=== PATIENT | male | born 1950 | race Two or more races ===

== ENCOUNTER 2016-12-06 00:05 | Inpatient (IN) | payer MEDICARE ==
[~2016-12-06] VITALS: Ht 167.6 cm; Wt 95.1 kg
--- NOTE | ~2016-12-06 | ESTC ---
Cardiac Perfusion Imaging Demographics Patient Name KRISTIN DIAZ Gender Male Patient Number [id number] Race Other Visit Number [id number] Ethnicity Corporate ID Room Number G6310 Accession Number [id number] Height 66 inches Date of 1950 Weight 210 pounds Interpreting CNC Date of study 12/12/2016 Physician Rajan Vieyra MD Supervising /ARMIDA Reyes NM Technologist Harriet Montgomery APRN Ordering Physician Bernardo Cox Stress metallurgical lab technician Stress ECG Reading Howard Reyes Nurse Iva Sharp RN Physician MACHINE PRINTER HOSE Procedure Procedure Type: Nuclear Stress Test:Pharmacological, Lexiscan, Cardiolite Stress Test Procedure Start time: 12/12/2016 09:30 Indications: Arrhythmia and PVCs. Risk Factors The patient risk factors include:hypercholesterolemia, hypertension, insulin treated diabetes mellitus and dyslipidemia. Conclusions Summary Cardiolite SPECT images demonstrate a mild to moderate reversible defect in the inferolateral region with associated hypokinesis. Findings consistent with probable ischemia. Normal TID ratio Gated images demonstrate inducible hypokinesis of moderate severity in the above mentioned area of the reversible defect. LVEF is 46% Stress Protocols Resting ECG Atrial fibrillation with rapid response. Frequent PVC's Resting HR:124 bpm Resting BP:160/59 mmHg Pre-stress physical exam: Alert. Lungs CTA. CV IRR Stress Protocol:Pharmacologic Peak HR:134 bpm HR response: Appropriate Peak BP:142/63 mmHg BP response: Appropriate Predicted HR: 153 bpm HR/BP product:47307 % of predicted HR: 88 Reason for termination:Infusion complete ECG Findings No ECG changes suggestive of ischemia. Symptoms Shortness of breath. Cough and nausea. Resolved after 2 minutes. Stress Interpretation Stress supervision and interpretation provided by Rita Lawrence APRN . Appropriate hemodynamic response to Lexiscan. No significant ST-T wave changes with Lexiscan. ECG portion is negative for ischemia by diagnostic criteria. Imaging Results Summed scores - Summed stress score: 6 - Summed rest score: 4 - Summed difference score: 2 Stress ejection Ejection fraction:45 % EDV :95 ml ESV :52 ml Stroke volume :43 ml LV mass :152 gr Imaging Protocols Rest Stress Isotope:Tc99m Sestamibi IV Isotope: Tc99m Sestamibi IV Isotope dose:14.4 mCi Isotope dose:45 mCi Date:12/12/2016 08:15 Date:12/12/2016 09:40 Technique: SPECT Technique: Gated Supine SPECT Supine IV remains in place after procedure. Scan Time:45-60 minutes post Scan Time:45-60 minutes post injection injection Procedure Medications - Regadenoson (Lexiscan) 0.4 mg IV over 10-15 sec. I.V. 0.4 mg. Medical History Admission Data Admission date: 12/06/2016 Admission Time: 03:15 Hospital Status: Inpatient. Signatures dtt: Jarrell Tolentino (cardio) dtd: 12/12/16 0930 Physician Self Edit
--- NOTE | ~2016-12-06 | CON ---
PATIENT'S NAME: [facility] AGE: 66 Y [address] ROOM: G6310 [place], [place] [address] LOCATION: GPCU ADMIT DATE: 12/06/2016 Consultation DISCHARGE DATE: FAMILY PHYSICIAN: Dagoberto Rea MD ATTENDING PHYSICIAN: DIEGO HERNANDEZ V DATE OF CONSULTATION: 12/09/2016 REFERRING PHYSICIAN: Raul CACERES (Jake) PATIENT OF: Dr. Silva. Dear Dr. Silva: Thank you for asking me to see Mr. Foster, who is a 66-year-old male patient, who was hospitalized on the with abdominal pain, and he was treated as acute abdomen. He has an NG tube in place, and he was on Cardizem intravenously to control his rate when he was found to have 3.5-second pause, and I was asked to see him in consultation. The patient has a history of atrial fibrillation for the past 12 years. Initially, his AFib was detected when his blood pressure ran very high and at that time, he was not particularly symptomatic. He was at some point started on Xarelto, which resulted in him having rectal bleeding. He denies having any heart failure. There is no history of [place] or angina or nitroglycerin use. There is no history of rheumatic fever or heart murmur. The patient has history of hypertension and diabetes. He denies abusing tobacco. Denies elevated cholesterol or family history of premature coronary artery disease. 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 He denies having any chest pain. He does not have any structured exercise program. He has been in functional class II-III with no paroxysmal nocturnal dyspnea or orthopnea. He has history of multiple myeloma and has been on chemotherapy which causes his sleep to be poor. He also has hiccups secondary to some other medications and that makes him difficult to sleep as well. He denies lightheadedness, dizziness, syncope, presyncope, palpitations, or ankle swelling. Sometime around February of last year, he developed diverticulitis, and this was treated conservatively. For the past 6 weeks or so, he has been having intermittent lumbar area pain with some radiation which has gotten a lot worse recently last Tuesday. Since his admission, he has been on nasogastric suction, and he is feeling better now. The patient had a stress test in 2014 with Lexiscan which was negative for [facility] 66 Y [address] ROOM: [place] [address] LOCATION: GPCU ADMIT DATE: 12/06/2016 Consultation DISCHARGE DATE: FAMILY PHYSICIAN: Dagoberto Rea MD ATTENDING PHYSICIAN: DIEGO HERNANEDZ. His echo in 2014 or so again revealed moderate LVH. MEDICATIONS: 1. Carvedilol 25 mg b.i.d. 2. Lovastatin 20 mg at bedtime. 3. Aspirin 325 mg 2 every 4 hours p.r.n. 4. Acetaminophen 500 mg 2 every 4 hours p.r.n. 5. Docusate sodium. 6. Tradjenta 5 mg 3 times a week. ALLERGIES: NO KNOWN DRUG ALLERGIES. PAST MEDICAL HISTORY: 1. Multiple myeloma. 2. Chronic kidney disease, and the patient blames it on diabetic medications in 2012. 3. Hernia surgery. 4. Cataract surgery. SOCIAL HISTORY: The patient is . He denies abusing alcohol. His appetite and weight have been stable. Sleep is poor. FAMILY HISTORY: No premature coronary artery disease. REVIEW OF SYSTEMS: Twelve-point review of systems reveals dry eyes. PHYSICAL EXAMINATION: VITAL SIGNS: On examination, his blood pressure is 140s/80s and irregular. Respiration is 20. Afebrile. His heart rate is in the 70s and irregular. HEENT: Normal. He has a nasogastric tube. NECK: Supple with no JVD, thyromegaly, lymphadenopathy, or carotid bruit. HEART: PMI is not well located. First and second heart sounds are irregular. There are no added sounds. There are no murmurs. CHEST: Clear. ABDOMEN: Obese and somewhat mildly tender to touch. EXTREMITIES: Reveal no edema. CENTRAL NERVOUS SYSTEM: Intact. ASSESSMENT: A 66-year-old male patient, who is admitted with acute abdomen, possibly secondary to a perforated viscus for which he is on conservative treatment as PATIENT'S NAME: [facility] AGE: 66 Y [address] ROOM: [place] [id number] LOCATION: GPCU ADMIT DATE: 12/06/2016 Consultation DISCHARGE DATE: FAMILY PHYSICIAN: Dagoberto Rea MD ATTENDING PHYSICIAN: DIEGO HERNANDEZ V of now. He also has history of multiple myeloma, chronic kidney disease, diabetes, and hypertension. His CHADS2-VASc score is 3. His HAS-BLED score is also somewhat high given the history of bleeding with Xarelto. RECOMMENDATION: 1. Check his thyroid function tests. 2. Avoid AV node blocking agents. 3. Repeat echocardiogram. 4. The patient was hypoxic when he presented and even though his chest x-ray is suggestive of early congestive heart failure, there is no clear explanation for his hypoxia. We will get a V/Q scan to see if that shows any abnormalities. At some point, he should be followed up with outpatient monitoring to be able to tell with certainty whether he is going to need a permanent pacemaker done in the recent present or not. I again appreciate this opportunity to participate in the care of Mr. Foster. MD DIDIER OWUSU/alvaro /[id number] d: 12/09/16 2305 t: 12/10/16 1838, CONSULTATION REPORT
--- NOTE | ~2016-12-06 | ECHO ---
Transthoracic Echocardiography Report (TTE) Demographics Patient Name JOE FOSTER Date of Study 12/10/2016 Patient Number [id number] Visit Number [id number] Date of 1950 Room Number G6310 Gender Male Number Age 66 year(s) Referring Bernardo Cox Air Conditioning Equipment Mechanic Fabian Ratliff RDCS, Physician MD NATHANAEL Hood MD Physician Interpreting Bernardo Cox Data Modeling Architect Physician Supervising Ordering Bernardo Cox MD/MLP Physician Nurse Stress Quality Improvement Engineer Conclusions Contractility Score Summary At rest the following contractility abnormalities were noted: Hypokinesis of the Mid maria eugenia-lateral, the Mid anterior, the Basal anterior and the Basal maria eugenia-lateral segments. Contractility of all other segments appeared normal. Summary The estimated left ventricular ejection fraction is 55-60% with normal internal dimension and WM.Mild concentric left ventricular hypertrophy. The left atrium is severely dilated by LA volume index measurement. The right atrium is moderately dilated. Mild-moderate mitral regurgitation by color Doppler. The aortic valve is moderately sclerotic. Mild tricuspid regurgitation by color Doppler. There is moderate pulmonary hypertension. The pulmonary pressure (RVSP) is 52.45 mmHg. Procedure Type of Study TTE procedure:2D Echocardiogram. Procedure Date Date: 12/10/2016 Start: 01:49 PM Study Location: Inpatient Portable Technical Quality: Adequate visualization Indications:Atrial fibrillation. Appropriate Use Criteria: 9 Patient Status: Routine Rhythm: Irregular HR: 44 bpm M-Mode/2D Measurements LV Diastolic Dimension: 5.18 cm LV Systolic Dimension: 3.26 cm LV Septum Diastolic: 1.09 cm LV PW Diastolic: 1.01 cm AO Root Dimension: 3.1 cm Cardiac Output: 3.8 l/min AV Cusp Separation: 1.4 cm RV Diastolic Dimension: 3.64 cm LA volume: 96 ml LVOT: 2 cm RV Base: 3.23 cm LVOT VTI: 27.5 cm RV Mid: 1.94 cm LV Stroke volume: 86.35 ml Doppler Measurements AV Peak Velocity: 1.93 m/s MV Peak E-Wave: 1.15 m/s AV Peak Gradient: 14.9 mmHg AV Mean Gradient: 9 mmHg MV P1/2t: 45 msec LVOT Peak Velocity: 1.42 m/s TR Velocity:3.06 m/s PV Peak Velocity: 1.34 m/s TR Gradient:37.45 mmHg PV Peak Gradient: 7.18 mmHg Estimated RAP:15 mmHg Estimated PASP: 52.45 mmHg Estimated RVSP: 52 mmHg E' Septal Velocity: 0.08 m/s E' Lateral Velocity: 0.1 m/s Findings Left Ventricle Mild concentric left ventricular hypertrophy with normal internal dimension,EF and WM. Right Ventricle Normal right ventricle structure and function. Left Atrium The left atrium is severely dilated by LA volume index measurement. Right Atrium The right atrium is moderately dilated. Mitral Valve Mild-moderate mitral regurgitation by color Doppler. Aortic Valve The aortic valve is moderately sclerotic. Tricuspid Valve Mild tricuspid regurgitation by color Doppler. There is moderate pulmonary hypertension. The pulmonary pressure (RVSP) is 52.45 mmHg. Pulmonic Valve Normal pulmonic valve structure and function. Pericardial Effusion No evidence of pericardial effusion. Miscellaneous Visualized portions of the aortic root and ascending aorta appear normal in size. Suboptimal subcostal window to evaluate the IVC and interatrial septum. Pleural Effusion No evidence of pleural effusion. Contractility Score LV regional wall motion:(0-Non visualized 1-Normal 2-Hypokinesis 3-Akinesis 4-Dyskinesis 5-Aneurysm) Signature dtt: Brooke Chang dtd: 12/10/16 7219 Physician Self Edit
--- NOTE | ~2016-12-06 | HP ---
PATIENT'S NAME: JOE FOSTER [facility] AGE: 66 Y [address] ROOM: [place] [address] LOCATION: GPCU ADMIT DATE: 12/06/2016 History & Physical DISCHARGE DATE: FAMILY PHYSICIAN: Dagoberto Rea MD ATTENDING PHYSICIAN: DIEGO HERNANDEZ V DATE OF SERVICE: 12/06/2016 CHIEF COMPLAINT: Abdominal pain. HISTORY OF PRESENT ILLNESS: Starting on last Tuesday, about 6 days ago, he started experiencing bilateral flank pain that progressed to generalized abdominal pain and throughout the course of the week also progressed to right lower quadrant and suprapubic abdominal pain that became significantly worse over the last day. He has had some associated nausea, but no associated vomiting until they had attempted NG tube placement here in the ER. He also admits to having his urine as more dark, orange than the normal. He also admits that in the last day, he became slightly more short of breath than normal, but denies any associated chest pain. He had a normal bowel movement yesterday and denies any melena or hematochezia. He had a similar episode of pain back in February, which ended up being perforated diverticulitis and was treated conservatively. His significant medical comorbidities include multiple myeloma for which he takes chronic steroids; previously was on chemotherapy, but was discontinued due to toxicities, specifically neurotoxicities. His story is further complicated by poorly controlled diabetes as well as chronic kidney disease, stage 4. He previously also had a GI bleed back in 2014 and that was his last colonoscopy at that time. He denies any fevers or chills at home. Denies any recent travel or change in dietary habits or sick contacts. The pain is worse with palpation. He denies any alleviating factors. The pain is moderate to severe in intensity and crampy in quality. Although he mainly complains of pain in the right lower quadrant to the palpation, he is most tender in the suprapubic and left lower quadrant areas. ALLERGIES: NO KNOWN DRUG ALLERGIES. MEDICATIONS: Please see hospitalist list for complete list of medications, but in brief, he is on steroids. FAMILY HISTORY: Noncontributory. PATIENT'S NAME: JOE FOSTER [facility] AGE: 66 Y [address] ROOM: [place] [address] [facility] AD[facility] DATE: 12/06/2016 History & Physical DISCHARGE DATE: FAMILY PHYSICIAN: Dagoberto Rea MD ATTENDING PHYSICIAN: DIEGO HERNANDEZ V SOCIAL HISTORY: He is originally from [facility] [place], but has lived in [place] since the mid 80s. He is and his accompanies him here today. He does have 1 son. 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 Denies any tobacco or alcohol use or abuse. REVIEW OF SYSTEMS: A full 10-point review of systems was discussed the patient and was negative except for as discussed above. Specifically, he denies any chest pain, although he does admit to some mild increased shortness of breath. He does admit to a darker than normal urine, but denies any other genitourinary complaints. PAST MEDICAL HISTORY: Multiple myeloma, on steroids, with previous chemotherapy; type 2 diabetes; chronic kidney disease, stage 4; hypertension; obesity; history of GI bleed; history of AFib with RVR; and history of questionable diagnosis of CLL. PAST SURGICAL HISTORY: Bilateral inguinal hernia repairs, shoulder surgery, and cataract surgery. PHYSICAL EXAMINATION: VITAL SIGNS: The patient is currently afebrile. His vital signs are stable. Earlier today in the ER, he had a heart rate with AFib with RVR in the 130s, but currently he is in the low 100s. He does appear to be mildly diaphoretic. He has nasal cannula, at least one prong in place. HEENT: His head is normocephalic. His sclerae are anicteric. NECK: Supple. Trachea is midline. He does appear to have some mild tachypnea. Otherwise, no use of accessory respiratory muscles. HEART: His rate is controlled. His rhythm is irregular. ABDOMEN: Soft throughout. It is moderately distended. It is tender to palpation, specifically in the suprapubic area and the left lower quadrant. He has no peritoneal signs. No guarding or rebound. EXTREMITIES: Bilateral lower extremities are warm. Brisk capillary refill without evidence of significant edema. No obvious calf tenderness or swelling. SKIN: No obvious skin lesions or rashes. LABORATORY EVALUATION: His UA has 100 protein, 50 glucose, ketones are negative, rare wbc's. INR 1.08, PTT 27. Procalcitonin was 0.06. Sodium 140, potassium 4.1, chloride 102, CO2 of 26, BUN is 48, creatinine 3.3, albumin 3.3, total bilirubin 0.4, alkaline phosphatase 108, AST 16, ALT 19. His white count is 11.6, hemoglobin 11.9, platelets are 198. His venous blood gas has pH 7.33, his pCO2 is 54. Again, this is venous and pO2 is 26, bicarb is 28.5. Lactate was 5.9, but PATIENT'S NAME: JOE FOSTER [facility] AGE: 66 Y [address] ROOM: G63[address] [place], [place] [address] LOCATION: GPCU ADMIT DATE: 12/06/2016 History & Physical DISCHARGE DATE: FAMILY PHYSICIAN: Dagoberto Rea MD ATTENDING PHYSICIAN: DIEGO HERNANDEZ V again he has chronic renal insufficiency. RADIOLOGY REVIEW: CT scan of the abdomen and pelvis shows a mild amount of pneumoperitoneum, most of it is surrounding the sigmoid colon and a couple of loops of small bowel around the sigmoid colon, very similar but more mild in the appearance back in February, perhaps an evolving small fluid collection around that same area with the pneumoperitoneum next to the sigmoid in the upper pelvis. The official read mentions the possibility of small bowel source versus diverticular source. I believe this is probably more likely to be a diverticular phlegmon and perforation, but no obvious abscess seen, no significant free fluid seen, no other evidence of acute changes. ASSESSMENT AND PLAN: Joe Foster is a very pleasant 66-year-old gentleman with about 6-day history of abdominal pain related to perforation, most likely secondary to diverticulitis. This appears to have been self-contained and sealed off as it has been going on for 6 days with only minimal amount of pneumoperitoneum and phlegmonous changes contained around the sigmoid colon, similar to previous. We discussed the option such as surgical versus medical management, and I recommend proceeding with attempted conservative management with antibiotics and bowel rest and supportive care at this point, but he understands the risks associated with this approach such as loss of containment of the perforation with progressive sepsis and need for emergent surgery and acute decompensation. He understands that if he were to require an emergent surgery, he would more than likely require a colostomy that given all of his comorbidities may end up being a permanent one. He understands the significant risk of surgery including infection, bleeding, damage to surrounding structures, need for further procedures and surgeries amongst others. Of course, his healing either with a surgical approach or with a conservative approach is dampened by his multiple myeloma, chronic kidney disease, and diabetes, and we will have to continue to keep a very close eye on him to make sure that he has indeed contained this perforation on his own, especially given the chronic steroid use and number of comorbidities. He and his had all their questions answered to their satisfaction. He will be admitted to the hospitalist, given IV antibiotics and bowel rest. We will continue to follow along from a surgical point of view as well. MD KWAME BRIONES (JAKE)/alvaro PATIENT'S NAME: JOE FOSTER [facility] AGE: 66 Y [address] ROOM: [place] [address] [facility] AD[facility] DATE: 12/06/2016 History & Physical DISCHARGE DATE: FAMILY PHYSICIAN: Dagoberto Rea MD ATTENDING PHYSICIAN: DIEGO HERNANDEZ V /[id number] D: T: [id number] HISTORY & PHYSICAL
--- NOTE | ~2016-12-06 | DS ---
PATIENT'S NAME: JOE FOSTER [facility] AGE: 66 Y [address] ROOM: [id number] [place], [place] [address] LOCATION: GPCU ADMIT DATE: 12/06/2016 Discharge Summary DISCHARGE DATE: 12/17/2016 FAMILY PHYSICIAN: Dagoberto Rea MD ATTENDING PHYSICIAN: Korey Solis V PRIMARY DIAGNOSES: 1. Sepsis. 2. Perforated diverticulitis, recurrent x2. 3. Atrial pause x1 3.48 seconds. 4. Acute hypoxic respiratory failure. 5. Coronary artery disease with right coronary artery stent. 6. Paroxysmal atrial fibrillation with rapid ventricular response. 7. Acute diarrhea. 8. Thrombocytopenia. 9. Hypernatremia. 10. Hypophosphatemia. 11. Chronic conditions includes diabetes type 2, chronic kidney disease, stage 3, multiple myeloma. PRINCIPAL PROCEDURE DONE FOR THE PATIENT: Includes a left heart catheterization with PCI stent in the RCA x2. LABORATORY DATA: Labs during the hospital stay: Lactic acid on admission was 5.9, repeat was 5.0. VBG was pH 7.48, pCO2 38, pO2 49. WBC on admission was 11.6, prior to discharge was 9.9, H and H on admission was 11.9/36.4, prior to discharge was 8.9/27.1, platelet on admission was 198, prior to discharge was 145. Creatinine on admission was 3.3, prior to discharge was 3.6, sodium highest level obtained during the hospital stay was 148, prior to discharge was 139, bicarb was 26 on admission, prior to discharge was 19. Hemoglobin A1c is 9.5, total cholesterol 57, HDL 12, LDL 20, and triglyceride 128. UA: Leukocytes negative, nitrite negative, wbc rare, procalcitonin 0.06. TSH was 1.930. MICROBIOLOGY: Urine culture was Micrococcus luteus. Blood culture was Bacteroides fragilis. Stool for C. diff was negative. RADIOLOGY: CT abdomen and pelvis reported as bowel wall thickening and adjacent inflammation involving the distal small bowel with a small amount of air within the small bowel mesentery concerning for small bowel perforation, relatively stable extensive bony lytic lesions, consistent with the patient's known multiple myeloma, small left renal cyst, diverticulosis with no evidence of diverticulitis. Serial KUB, V/Q scan, low probability exam for pulmonary embolic disease. Suspected underlying COPD. Nuclear stress test severely positive. Echocardiogram the estimated left ventricular ejection fraction is PATIENT'S NAME: JOE FOSTER [facility] AGE: 66 Y [address] ROOM: [id number] [place], [place] [address] LOCATION: GPCU ADMIT DATE: 12/06/2016 Discharge Summary DISCHARGE DATE: 12/17/2016 FAMILY PHYSICIAN: Dagoberto Rea MD ATTENDING PHYSICIAN: Korey Solis V 55% to 60% with normal internal dimension and wall motion. Mild concentric left ventricular hypertrophy. The left atrium is severely dilated by LV volume index measurement. The right atrium is moderately dilated. PA pressure 52. Cardiolite SPECT imaging demonstrates [id number] reversible defect in the inferolateral region with associated hypokinesis. Finding consistent with probable ischemia. HOSPITAL COURSE: For history of present illness, please take a look at the H and P, which was done by Dr. Solis. The patient was admitted to Progressive Care Unit, had a General Surgery consult, given his admitting diagnosis of perforated small bowel, secondary to his diverticulosis. The patient was managed conservatively by General Surgery. An attempt was made to pass an NG- tube on the first day of hospital stay, but failed. However, by the next day of his hospital stay, the patient continued to have nausea and vomiting by the nighttime; so, by the next day of the hospital stay, his NG tube was successfully passed. The patient was continued on n.p.o. Some of his medication, especially his Cardizem, his rate-controlled meds for his AFib was switched to IV, he was started on Cardizem drip. He was monitored serially with a KUB by the General Surgery team and the patient was able to pass gas and progressively started passing stool. By December 09, the patient had an atrial pause of about 3.48 seconds. Based on this, Cardiology was consulted; and following this, he had an echocardiogram done, stress test done, which was positive; and subsequently, went in for a left heart cath, which resulted in him having 2 stents in his RCA. The procedure was well-tolerated by the patient without any intraoperative or postop complication. By December 11, the patient started passing stool, his NG tube was discontinued, and he was started on oral sips, which he tolerated well; and from this point onwards, his diet was slowly advanced to full regular diet without symptoms of nausea or vomiting. Following the improvement in his small-bowel perforation from December 13, the patient started to have diarrhea, stool was tested, and this was negative for C. diff. The diarrhea improved however 2 days prior to discharge the acute diarrhea restarted again; however, his stool was unable to be tested for C. diff as it was still within the 7 day period of the initial testing for C. diff; however, prior to discharge, this acute diarrhea resolved. The patient was still being followed up by Cardiology, his Coreg was discontinued, and was put on metoprolol and also on Brilinta. Throughout his hospital stay, the patient was feet physically conditioned, participated well with physical therapy as well as occupational therapy; and on the day of discharge, his vital signs were stable and he was discharged home. During his stay, the patient was started on broad-spectrum antibiotics of cefepime and Flagyl and he did have his blood cultures positive for Bacteroides. His Flagyl was continued on discharge for him to complete a total course of 14 days of antibiotics. MEDICATIONS ON DISCHARGE: Includes: PATIENT'S NAME: JOE FOSTER [facility] AGE: 66 Y [address] ROOM: [place] [address] LOCATION: GPCU ADMIT DATE: 12/06/2016 Discharge Summary DISCHARGE DATE: 12/17/2016 FAMILY PHYSICIAN: Dagoberto Rea MD ATTENDING PHYSICIAN: Korey Solis V 1. Aspirin 81 mg p.o. daily. 2. Lipitor 40 mg p.o. daily. 3. Levemir 10 units subcu q.a.m. FlexPen, new medication. 4. Lopressor 62.5 mg p.o. twice daily. 5. Flagyl 500 mg p.o. 3 times daily for an extra 3 days to make a total of 14 days of antibiotics. 6. Protonix 40 mg p.o. daily, new medication. 7. Florastor 250 mg p.o. twice daily, new medication. 8. Sodium bicarb 1300 mg p.o. twice daily for 5 days, new medication. 9. Brilinta 90 mg p.o. twice daily. 10. Tylenol Extra Strength 1 g p.o. q.4 h. p.r.n. 11. Colace 100 mg p.o. daily p.r.n. 12. Tradjenta 5 mg p.o. 3 times per week. Discharge time spent on this patient is approximately 35 minutes, which included discussing his discharge followup and plans with the patient. MD DIPAK DEE/alvaro /[id number] d: 12/18/16 0124 t: 12/18/16 1438, DISCHARGE SUMMARY
--- NOTE | ~2016-12-06 | ER ---
PATIENT'S NAME: JOE FOSTER [facility] AGE: 66 Y [address] ROOM: [place] [address] LOCATION: GPCU ADMIT DATE: 12/06/2016 ER/Outpatient Report DISCHARGE DATE: FAMILY PHYSICIAN: Dagoberto Rea MD ATTENDING PHYSICIAN: DIEGO HERNANDEZ V Time of Arrival: 0005 hours. CHIEF COMPLAINT: This is a 66-year-old male with multiple medical problems. He is in with a complaint of fever and abdominal pain. HISTORY OF PRESENT ILLNESS: The patient reports that he had gradual onset of bilateral flank pain last night, developed more diffuse and more severe abdominal pain throughout the day today. Today, he began having some bloating and worsening abdominal pain this afternoon associated with nausea and vomiting. PAST MEDICAL HISTORY: Significant for diverticulitis. He was hospitalized in February of last year for a ruptured diverticulum with diverticular abscess. He also has a history of multiple myeloma, hypertension, non-insulin dependent diabetes, and chronic renal insufficiency. CURRENT MEDICATIONS: See list. REVIEW OF SYSTEMS: He has developed chills today; prior to the onset of this illness, he has had no fever or chills. His appetite been normal. There was no prodrome to this illness. All other systems are negative. SOCIAL HISTORY: He is currently a nonsmoker. No alcohol. He is . PHYSICAL EXAMINATION: GENERAL: Pale, ill-appearing male, in obvious distress. He is febrile and tachycardic. ABDOMEN: Significantly distended. He was nauseated, had dry heaves and belching. HEENT: Head, ears, eyes, nose, and throat were normal. NECK: Supple. He had moderate jugular venous distention. HEART: Irregular rhythm. He is tachycardiac. LUNGS: He had rales audible in the lower two-thirds bilaterally. ABDOMEN: Distended, diffusely tender. Diminished bowel sounds. PATIENT'S NAME: JOE FOSTER [facility] AGE: 66 Y [address] ROOM: [address] [address] LOCATION: GPCU ADMIT DATE: 12/06/2016 ER/Outpatient Report DISCHARGE DATE: FAMILY PHYSICIAN: Dagoberto Rea MD ATTENDING PHYSICIAN: DIEGO HERNANDEZ V EXTREMITIES: Normal. NEUROLOGIC: He is awake, alert, and he had no focal motor or sensory deficits. LABORATORY DATA AND X-RAYS: CBC revealed an elevated white blood cell count of 14,000. Urinalysis revealed proteinuria and no evidence of acute infection. Procalcitonin was negative. Glucose was elevated at 236, creatinine was elevated at 3.3. EKG revealed atrial fibrillation with rapid ventricular response, the rate varied between [address] of the abdomen and pelvis revealed a small amount of free air, probable microperforation from diverticulitis, diverticular abscess. EMERGENCY DEPARTMENT COURSE: The patient was extremely hypertensive and appeared to be fluid overloaded on arrival. He was tachycardiac due to his atrial fibrillation. He was given Cardizem bolus of 10 mg, Cardizem drip was initiated at 10 mg/hour. He responded well to that. He was given IV Zosyn and Flagyl. A surgical consult arrived and evaluated the patient and the patient was admitted to Dr. Hernandez. Time spent caring for the patient 70 minutes. ASSESSMENT: 1. Peritonitis due to ruptured diverticulitis. 2. Atrial fibrillation with rapid ventricular response. 3. Probable sepsis. PLAN: He is admitted to the ICU. He was quite hypertensive and appeared to be fluid overloaded on arrival, so in spite of the sepsis, we did not do aggressive fluid resuscitation. JANELLE LOO MD JDB/modl /[id number] d: 12/07/16 0046 t: 12/07/16 0445, OUTPATIENT REPORT
--- NOTE | ~2016-12-06 | HP ---
PATIENT'S NAME: JOE FOSTER [facility] AGE: 66 Y [address] ROOM: [place] [address] LOCATION: [facility] ADMIT DATE: 12/06/2016 History & Physical DISCHARGE DATE: FAMILY PHYSICIAN: Dagoberto Rea MD ATTENDING PHYSICIAN: Alessio Beaver DATE OF SERVICE: CHIEF COMPLAINT: Abdominal pain and nausea. HISTORY OF PRESENT ILLNESS: The patient is a 66-year-old male with multiple medical problems, most significant of which is multiple myeloma as well as atrial fibrillation, currently not on anticoagulation. The patient presented to the hospital with approximately one week of worsening abdominal pain. His symptoms progressively got worse and today he has had some fevers as well as nausea and vomiting. The workup in the ER demonstrated a lactate of 5 with elevated white count and CAT scan which showed free air likely due to perforated diverticula. Of note, the patient had a very similar presentation approximately 9 months ago where he presented with similar symptoms and was found to have perforation with free air which was treated nonsurgically. In the ER, the patient was also noted to be in atrial fibrillation with rapid ventricular response and has been started on Cardizem. At this point, the patient still complains of some abdominal pain as well as some mild nausea. Three attempts [address] an NG tube have been unsuccessful. REVIEW OF SYSTEMS: Positive for fever, chills, and generalized malaise. PAST MEDICAL HISTORY: As extracted from our records and provided by the patient and his are, 1. Multiple myeloma, currently on oral therapy, but they are not able to tell me exactly what medication the patient takes, though apparently Decadron is one of them. 2. Atrial fibrillation, currently not on anticoagulation. 3. History of lower GI bleed. 4. History of diverticulitis with perforation. 5. Jez-ddvshwt-zktsfvplj diabetes. 6. Chronic kidney disease stage 4. PATIENT'S NAME: JOE FOSTER [facility] AGE: 66 Y [address] ROOM: [place] [address] LOCATION: [facility] ADMIT DATE: 12/06/2016 History & Physical DISCHARGE DATE: FAMILY PHYSICIAN: Dagoberto Rea MD ATTENDING PHYSICIAN: Alessio Beaver 7. Essential hypertension. SOCIAL HISTORY: The patient denies any ongoing or history of toxic habits. CURRENT MEDICATIONS: Being obtained but the patient is not able to tell me what they are. PHYSICAL EXAMINATION: VITAL SIGNS: At this point, blood pressure 130/62, heart rate is in low 100s, saturating 96% on 2 L nasal cannula, temperature is 100.3, respirations are in high 20s. GENERAL: Appears as a toxic appearing middle-aged male in some distress due to abdominal pain. SKIN: Diaphoretic throughout. EYE: Exam shows pupils are equal and reactive to light. LYMPHATIC: Exam shows no cervical lymphadenopathy. ENDOCRINE: Exam shows no thyromegaly. LUNGS: Demonstrate diminished inspiratory effort with no wheezing or rales. HEART: Exam shows irregular rate and rhythm with irregular tachycardia. No appreciable murmurs, gallops, or rubs. There is no lower extremity edema or jugular venous distention that can be appreciated. GI: Exam reveals diffusely tender abdomen with normoactive bowel sounds. No guarding or rebound appreciated. : Exam reveals no costovertebral angle tenderness. VASCULAR: Exam reveals 2+ pedal pulses. MUSCULOSKELETAL: Exam shows no muscle or joint abnormalities. DIAGNOSTIC STUDIES: Studies performed so far show an atrial fibrillation. EKG with atrial fibrillation and rapid ventricular response with right bundle-branch block. CAT scan has been interpreted as evidence of bowel perforation, exact etiology is uncertain, but there is inflammation and ill-defined fluid within the free air surrounding bowel loops in the upper pelvis. This may be small-bowel perforation. Sigmoid colonic diverticulitis with perforation and small volume abscess is less likely. LABORATORY DATA: Laboratory results are significant for; VBG showing pH of 7.33, pCO2 of 54, bicarb of 28, saturating 42%. Lactate is 5.9. His creatinine is 3.3 which is up from a presumed baseline in high 2s. White count is 11.6, hemoglobin is 11.9, platelets of 198. INR is 1.08. Urinalysis is unremarkable. ASSESSMENT AND PLAN: This is a 66-year-old male who will be admitted with, PATIENT'S NAME: JOE FOSTER [facility] AGE: 66 Y [address] ROOM: [place], [place] [address] LOCATION: [facility] ADMIT DATE: 12/06/2016 History & Physical DISCHARGE DATE: FAMILY PHYSICIAN: Dagoberto Rea MD ATTENDING PHYSICIAN: Alessio Beaver 1. Severe sepsis due to likely diverticulitis/perforation. We will utilize the severe sepsis order set. We will aggressively hydrate the patient. We will monitor his perfusion and support it as necessary. We will repeat his lactate in 5 hours after admission to monitor for evolution of his septic process. 2. Diverticular perforation. The patient is currently being evaluated by Surgery, though we do not expect any surgical intervention given his multiple medical problems. 3. Atrial fibrillation with rapid ventricular response. We will continue the patient on Cardizem drip, and we will need to get a list of his home medications and optimize as needed. 4. Acute hypoxic respiratory failure based on oxygen demand. We will provide him with incentive spirometry and supplemental oxygen. 5. Insulin-dependent diabetes. We will put the patient on sliding scale insulin as every 6 hours, as he will be kept n.p.o. 6. Acute kidney injury on chronic kidney disease stage 4. We will hydrate the patient and monitor his renal function. 7. Multiple myeloma. This does not appear to be active, but we will consider a Hematology-Oncology consultation. 8. Hypercalcemia. This is likely related to his multiple myeloma and dehydration; we will monitor calcium level and treat it if it does not respond to fluids. 9. Additional management will depend on clinical course. Time dedicated for this patient's encounter is 35 minutes. MD FER PRADO/alvaro /[id number] D: 436 T: 020 HISTORY & PHYSICAL
--- NOTE | ~2016-12-06 | CATH ---
Cardiac Diagnostic + PCI Report Demographics Patient Name KRISTIN DIAZ Gender Male Date of 1950 Age 66 year(s) Patient Number [id number] Date of Study 12/13/2016 Visit Number [id number] Room Number G6310 [place] [id number] Ht 167.64 cm Wt 95.26 kg Referring Rea Dagoberto Hood MD Primary Physician Physician Will Lockett MD Performing Rajan Vieyra MD Secondary Physician Physician Diagnostic Rajan Vieyra MD Assisting Physician Physician Interventional Rajan Vieyra MD Physician [place] Operator Physician Findings and Conclusions Diagnostic Findings and Conclusion One vessel CAD Diagnostic Recommendations PCI RCA Interventional Findings and Conclusion 0.014 Prowater 3.5x12 Emerge 4.5x20 VeriFlex to 5.02 with 0% residual Interventional Recommendations DAPT for one month Routine post perclose Procedure Description The patient was brought to the diagnostic cardiac catheterization-EP laboratory in the fasting, non-sedated state. Informed consent was obtained in the written and verbal form after the risks and benefits were explained. The patient had no further questions and agreed to proceed. The planned puncture-incision site(s) were shaved and prepped with ChloraPrep and draped in the usual sterile manner. Conscious sedation, supplemental oxygen, and pain control medications were delivered by a registered nurse under physician guidance. Surface ECG rhythm, blood pressure measurement, and pulse oximetry were monitored throughout the procedure. Arterial access. The access site was infiltrated with lidocaine. The vessel was entered with the Seldinger technique. A sheath was advanced into the vessel and used for catheter placement. Selective left coronary angiography. A catheter was advanced into the left coronary vessel ostium under Fluoroscopic guidance. Contrast was injected by hand. Images were obtained in multiple projections. Selective right coronary angiography. A catheter was advanced into the right coronary vessel ostium under fluoroscopic guidance. Contrast was injected by hand. Images were obtained in multiple projections. Angioplasty and Stent Placement: A guiding catheter was used to intubate the vessel. A 0.14 wire was then used to cross the lesion. A balloon catheter was placed across the lesion and inflated. The balloon catheter was then removed. A Bare Metal Stent was placed and inflated. Post placement angiograms were performed. Left heart catheterization. A catheter was advanced across the aortic valve to the left ventricle under fluoroscopic guidance. Resting hemodynamics were obtained. Arterial artery hemostasis was achieved. The patient was transferred to a regular nursing floor via cart accompanied by a nurse. The patient left the laboratory in stable condition. Diagnostic Cath Status: Urgent Interventional Cath Status: Urgent Procedure Procedure Type Diagnostic procedure:Angiography:, Coronary Angios /[facility] PCI procedure:Bare Metal Coronary Stent:, RCA, PTCA:, RCA Indications: Shortness of breath, Rapid heart beat, Abnormal stress perfusion study and Unstable angina. The procedure was explained in detail to the patient. Risks, complications and alternative treatments were reviewed. Written consent was obtained. Medications Reviewed with Patient prior to Procedure. Angiographic Findings Dominance: Mixed Cardiac Arteries and Lesion Findings LMCA: Normal (0% Stenosis).Very Large caliber vessel. LAD: Normal (0% Stenosis).The LAD is a large caliber vessel. The 1st Diag is a medium caliber vessel. The 1st Diag appears normal. LCx: Normal (0% Stenosis).LCx Large caliber vessel. The 1st ob Marta is a small caliber vessel. The 1st ob Marta appears normal. The 2nd ob Marta is a large caliber vessel. The 2nd ob Marta appears normal. RCA: Abnormal.The RCA is a large caliber vessel. The R PDA is a large caliber vessel. The R PDA appears normal. The R PL is a large caliber vessel. The R PL appears normal. Lesion on Mid RCA: 85% stenosis reduced to 0%. Pre procedure LUIS III flow was noted. Post Procedure LUIS III flow was present. The guidewire cross was successful.The lesion was diagnosed as a low risk lesion.The lesion was eccentric.Culprit lesion. Devices used - Prowater Wire .014 x 180. Number of passes: 1. - Emerge Balloon 3.5 x 12. 1 inflation(s) to a max pressure of: 12 anthony. - BARE METAL: VERIFLEX STENT 4.5X20MM ([id number]). Diameter: 4.5 mm. Length: 20 mm. 2 inflation(s) to a max pressure of: 16 anthony. Coronary Tree Procedure Data Procedure Date Date: 12/13/2016Start: 09:09 AMEnd: 09:56 AM Entry Locations - Retrograde Percutaneous access was performed through the Right Femoral artery (Primary location). A 6 Fr sheath was inserted. Hemostasis was successfully obtained using Perclose ProGlide (Abrams). Closure Comments: [place] . Procedure Medications Order and Administration + + + + + !Time !Medication !Dosage !Route ! + + + + + !12/13/2016 09:06 !Versed !1 mg !I.V. ! !AM ! ! ! ! + + + + + !12/13/2016 09:06 !Fentanyl !25 mcg !I.V. ! !AM ! ! ! ! + + + + + !12/13/2016 09:09 !Versed !1 mg !I.V. ! !AM ! ! ! ! + + + + + !12/13/2016 09:18 !Angiomax (Bivalirudin) !75 mg !I.V. bolus ! !AM !(ACC_5) ! ! ! + + + + + !12/13/2016 09:21 !Angiomax (Bivalirudin) !1.75 mg/kg/hr!I.V. drip ! !AM !(ACC_5) ! ! ! + + + + + !12/13/2016 09:35 !Brilinta (Ticagrelor) !180 mg !P.O. ! !AM !(ACC_20) ! ! ! + + + + + !12/13/2016 09:48 !Angiomax (Bivalirudin) ! !I.V. drip ! !AM !(ACC_5) ! ! ! + + + + + Devices Used - A6 Fr. BS JL 4 Diag. Catheterwas used for:Left coronary angiography. - A6 Fr. BS JR 4 Diag. Catheterwas used for:Right coronary angiography. - A6 Fr. BS Angled Pigtail Diag. Catheterwas used for:LV Pressures. - A6 Fr. JR4 Guide Catheterwas used for:RCA Intervention. Contrast Material - Isovue 77625 ml Fluoroscopy Time: Diagnostic: 8:00 minutes. Total: 8:00 minutes. Fluoroscopy Dose: Diagnostic: 1328 mGy. Total: 1328 mGy. Estimated Blood Loss: 4 ml. Additional [facility] PCI Information PCI Indication:PCI for high risk Non-STEMI or unstable angina. Medical History Performed Procedures and Imaging Results - Stress testing with SPECT MPIwas performed on 12/12/2016. Results were: Positive. Risk/Extent of ischemia was: Intermediate risk. Allergies - No known allergies. Risk Factors The patient risk factors include:hypercholesterolemia, hypertension, insulin-treated diabetes mellitus, last creatinine: 3.6 mg/dl, creatinine clearance: 26.83 ml/min and dyslipidemia. Admission Data Admission Date: 12/06/2016 Admission Time: 03:15 AM Admit Source: Emergency department Insurance Payors: Medicare. Admission Medications + +------+------+ + + + + !Medication !Dosage!Times !Last !Last !Administered !Comments ! ! ! !Per !Delivery !Delivery ! ! ! ! ! !Day !Date !Time ! ! ! + +------+------+ + + + + !Beta ! ! ! ! !Yes ! ! !Milvia ! ! ! ! ! ! ! !(any) ! ! ! ! ! ! ! + +------+------+ + + + + !Statin ! ! ! ! !Yes ! ! !(any) ! ! ! ! ! ! ! + +------+------+ + + + + Clinical Evaluation Leading to Procedure - The patient's CAD presentation was assessed as: Unstable angina. - The patient's anginal syndrome during the past two weeks was assessed as: Class III according to the [place] Cardiovascular Society Classification System (CCS). Anti-anginal medications were prescribed during the past two weeks. The medication is: Beta Blockers. Hemodynamics Condition: Rest O2 Consumption: Estimated: 210.04Heart Rate: 35 bpm Pressures (mmHg) +-----+ + !Site !Pressure ! +-----+ + !AO !123/84 (102) ! +-----+ + !LV !135/4 ,9 ! +-----+ + !LV !125/7 ,11 ! +-----+ + !AO !119/79 (98) ! +-----+ + !LV !126/6 ,11 ! +-----+ + Valve Gradients and Areas + +---------+---------+---------+ +---------+ + !Valve !Peak !Mean !Area !Index !Flow !Source ! + +---------+---------+---------+ +---------+ + !Aortic !3 !0 ! ! ! ! ! + +---------+---------+---------+ +---------+ + !Aortic !3 !0 ! ! ! ! ! + +---------+---------+---------+ +---------+ + Shunts Oxygen Values O2 Capacity 161.84 O2 Consumption 210.04 Discharge Data Discharge Date: 12/17/2016 Hospital Status: Inpatient Signatures dtt: Jarrell Tolentino (cardio) dtd: 12/13/16 0909 Physician Self Edit
[~2016-12-06 00:05] MED LIST: AMOXICILLIN500 M1 PO; APRESOLINE50 MG PO; ASPIRIN325 MG PO; AUGMENTIN500 MG PO; COLACE100 MG PO; COREG25 MG PO; DECADRON4 MG PO; FEOSOL325 MG PO; FLAGYL500 M1 PO; FLORASTOR250 MG PO; JANUMET 50-1,01 EACH PO; JANUVIA25 MG PO; LOVASTATIN20 MG PO; NORVASC5 MG PO; PROTONIX40 MG PO; VASOTEC20 MG PO
[2016-12-06 00:28] LABS: BASOPHIL % 0.2 %; BICARBONATE 28.5 mmol/L (18.0-23.0); EOSINOPHIL % 0.3 %; HEMATOCRIT 36.4 % (37.0-53.0); HEMOGLOBIN 11.9 g/dL (11.0-16.0); IMMATURE GRANULOCYTE # 0.1 K/uL (0.0-0.3); IMMATURE GRANULOCYTE % 0.6 %; LYMPHOCYTE # 1.9 K/uL (0.8-4.0); LYMPHOCYTE % 16.5 %; MCH 32.2 pg (27.0-34.0); MCHC 32.7 gm/dL (32.0-36.5); MCV 98.4 fl (83.0-98.0); MONOCYTE # 0.6 K/uL (0.0-1.0); MONOCYTE % 5.2 %; MPV 9.9 fl (9.4-12.4); NEUTROPHIL # (ANC) 8.9 K/uL (1.4-9.0); NEUTROPHIL % 77.2 %; NRBC % 0.3 /100WBC (0-0.00); PCO2 54 mmHg (35-45); PLATELET COUNT 198 K/uL (150-450); RDW-CV 13.8 % (11.9-14.6); WBC 11.6 K/uL (4.0-11.0)
[2016-12-06 00:29] LABS: PO2 26 mmHg (80-90)
[2016-12-06 00:30] LABS: LACTATE 5.9 mEq/L (0.50-1.60)
[2016-12-06 00:42] LABS: ALBUMIN 3.3 gm/dL (3.5-5.0); ANION GAP 16.1 (10.0-19.0); CALCIUM 11.3 mg/dL (8.5-10.5); CREATININE 3.3 mg/dL (0.6-1.3); POTASSIUM 4.1 mMol/L (3.7-5.1); TOTAL BILIRUBIN 0.4 mg/dL (0.0-1.5); TOTAL PROTEIN 8.6 g/dL (6.0-8.4)
[2016-12-06 01:50] LABS: BILIRUBIN URINE NEGATIVE (NEGATIVE); BLOOD URINE 25 /UL (NEGATIVE); COLOR URINE YELLOW (YELLOW); GLUCOSE URINE 50 mg/dL (NEGATIVE); KETONE URINE NEGATIVE (NEGATIVE); LEUKOCYTES URINE NEGATIVE /UL (NEGATIVE); NITRITE URINE NEGATIVE (NEGATIVE); PROTEIN URINE 100 mg/dL (NEGATIVE); SPEC GRAVITY URINE 1.015 (1.003-1.035); TURBIDITY URINE CLEAR (CLEAR); UROBILINOGEN URINE NORMAL (NORMAL)
[2016-12-06 01:55] LABS: INR - (THERAPEUTIC) 1.08 (0.92-1.07); PROTIME 11.3 SECONDS (9.8-11.4)
[2016-12-06 01:57] LABS: BACTERIA URINE NEGATIVE (NEGATIVE); EPITHELIAL URINE 0-2 #/HPF (NEGATIVE); RBC URINE 0-2 #/HPF (NEGATIVE); WBC URINE RARE #/HPF (NEGATIVE)
[2016-12-06] MEDS ORDERED: TYLENOL EXTRA500 MG PO (04:18)
[2016-12-06] MEDS ORDERED: COLACE100 MG PO (04:18)
[2016-12-06] MEDS ORDERED: TRADJENTA5 MG PO (04:21)
[2016-12-06 05:36] LABS: PCO2 38 mmHg (35-45)
[2016-12-06 05:37] LABS: PO2 49 mmHg (80-90)
[2016-12-06 08:29] LABS: HEMATOCRIT 33.3 % (37.0-53.0); HEMOGLOBIN 11.2 g/dL (11.0-16.0); MCH 33.1 pg (27.0-34.0); MCHC 33.6 gm/dL (32.0-36.5); MCV 98.5 fl (83.0-98.0); MPV 10.1 fl (9.4-12.4); PLATELET COUNT 162 K/uL (150-450); RBC 3.38 M/uL (3.50-5.50); RDW-CV 14.1 % (11.9-14.6); WBC 11.1 K/uL (4.0-11.0)
[2016-12-06 08:55] LABS: ABSOLUTE NEUTROPHIL CT (ANC) 8.9 K/uL (1.4-9.0); ALBUMIN 2.7 gm/dL (3.5-5.0); ANION GAP 15.9 (10.0-19.0); BANDED NEUTROPHIL # 0.9 K/uL (0.0-0.1); BANDED NEUTROPHILS % 8 %; CALCIUM 10.4 mg/dL (8.5-10.5); CREATININE 3.8 mg/dL (0.6-1.3); LYMPHOCYTE # 1.3 K/uL (0.8-4.0); LYMPHOCYTE % 12 %; MAGNESIUM 2.2 mg/dL (1.8-2.6); MONOCYTE # 0.8 K/uL (0.0-1.0); POTASSIUM 3.9 mMol/L (3.7-5.1); SEGMENTED NEUTROPHIL % 72 %; TOTAL PROTEIN 7.5 g/dL (6.0-8.4)
[2016-12-06 08:59] LABS: TOTAL BILIRUBIN 0.8 mg/dL (0.0-1.5)
[2016-12-07 04:34] LABS: HEMATOCRIT 30.3 % (37.0-53.0); HEMOGLOBIN 9.7 g/dL (11.0-16.0); MCH 32.1 pg (27.0-34.0); MCV 100.3 fl (83.0-98.0); MPV 10.5 fl (9.4-12.4); PLATELET COUNT 155 K/uL (150-450); RBC 3.02 M/uL (3.50-5.50); RDW-CV 14.8 % (11.9-14.6); WBC 12.8 K/uL (4.0-11.0)
[2016-12-07 04:50] LABS: ALBUMIN 2.4 gm/dL (3.5-5.0); ANION GAP 11.8 (10.0-19.0); CALCIUM 9.6 mg/dL (8.5-10.5); PHOSPHORUS 4.9 mg/dL (2.5-4.9); POTASSIUM 3.8 mMol/L (3.7-5.1)
[2016-12-07 04:51] LABS: CREATININE 4.2 mg/dL (0.6-1.3)
[2016-12-07 05:26] LABS: ABSOLUTE NEUTROPHIL CT (ANC) 9.6 K/uL (1.4-9.0); BANDED NEUTROPHIL # 4.5 K/uL (0.0-0.1); BANDED NEUTROPHILS % 35 %; LYMPHOCYTE # 2.8 K/uL (0.8-4.0); LYMPHOCYTE % 22 %; MONOCYTE # 0.3 K/uL (0.0-1.0); SEGMENTED NEUTROPHIL # 5.1 K/uL (1.4-9.0); SEGMENTED NEUTROPHIL % 40 %
[2016-12-07 06:39] LABS: MAGNESIUM 2.5 mg/dL (1.8-2.6)
[2016-12-08 05:00] LABS: HEMATOCRIT 28.2 % (37.0-53.0); MCH 32.4 pg (27.0-34.0); MCHC 31.9 gm/dL (32.0-36.5); MCV 101.4 fl (83.0-98.0); MPV 10.9 fl (9.4-12.4); PLATELET COUNT 133 K/uL (150-450); RBC 2.78 M/uL (3.50-5.50); RDW-CV 15.1 % (11.9-14.6); WBC 7.7 K/uL (4.0-11.0)
[2016-12-08 05:16] LABS: CALCIUM 9.4 mg/dL (8.5-10.5); POTASSIUM 3.7 mMol/L (3.7-5.1)
[2016-12-08 05:18] LABS: ANION GAP 14.7 (10.0-19.0)
[2016-12-08 05:19] LABS: CREATININE 4.2 mg/dL (0.6-1.3); MAGNESIUM 2.8 mg/dL (1.8-2.6)
[2016-12-08 05:29] LABS: ABSOLUTE NEUTROPHIL CT (ANC) 7.3 K/uL (1.4-9.0); BANDED NEUTROPHIL # 2.5 K/uL (0.0-0.1); BANDED NEUTROPHILS % 33 %; LYMPHOCYTE # 0.4 K/uL (0.8-4.0); LYMPHOCYTE % 5 %; SEGMENTED NEUTROPHIL # 4.8 K/uL (1.4-9.0); SEGMENTED NEUTROPHIL % 62 %
[2016-12-09 05:08] LABS: HEMATOCRIT 26.3 % (37.0-53.0); HEMOGLOBIN 8.5 g/dL (11.0-16.0); MCH 32.4 pg (27.0-34.0); MCHC 32.3 gm/dL (32.0-36.5); MCV 100.4 fl (83.0-98.0); MPV 10.9 fl (9.4-12.4); PLATELET COUNT 125 K/uL (150-450); RBC 2.62 M/uL (3.50-5.50); RDW-CV 15.2 % (11.9-14.6); WBC 7.2 K/uL (4.0-11.0)
[2016-12-09 05:31] LABS: CALCIUM 9.6 mg/dL (8.5-10.5); POTASSIUM 3.5 mMol/L (3.7-5.1)
[2016-12-09 05:32] LABS: ANION GAP 10.5 (10.0-19.0); CREATININE 4.2 mg/dL (0.6-1.3); MAGNESIUM 3.1 mg/dL (1.8-2.6)
[2016-12-09 06:01] LABS: BANDED NEUTROPHIL # 1.3 K/uL (0.0-0.1); BANDED NEUTROPHILS % 18 %; LYMPHOCYTE # 1.1 K/uL (0.8-4.0); LYMPHOCYTE % 15 %; MONOCYTE # 0.1 K/uL (0.0-1.0); SEGMENTED NEUTROPHIL # 4.7 K/uL (1.4-9.0); SEGMENTED NEUTROPHIL % 65 %
[2016-12-09 17:41] LABS: CPK 24 IU/L (35-332)
[2016-12-10 00:38] LABS: CPK 19 IU/L (35-332)
[2016-12-10 05:33] LABS: CALCIUM 9.7 mg/dL (8.5-10.5); CREATININE 3.9 mg/dL (0.6-1.3); POTASSIUM 3.6 mMol/L (3.7-5.1)
[2016-12-10 05:35] LABS: ANION GAP 13.6 (10.0-19.0); MAGNESIUM 2.9 mg/dL (1.8-2.6)
[2016-12-10 05:42] LABS: CPK 20 IU/L (35-332)
[2016-12-11 04:31] LABS: CREATININE 3.6 mg/dL (0.6-1.3)
[2016-12-11 04:35] LABS: MAGNESIUM 2.7 mg/dL (1.8-2.6)
[2016-12-12 03:52] LABS: CALCIUM 10.1 mg/dL (8.5-10.5); CREATININE 3.7 mg/dL (0.6-1.3); POTASSIUM 3.9 mMol/L (3.7-5.1)
[2016-12-12 03:57] LABS: ANION GAP 12.9 (10.0-19.0); MAGNESIUM 2.7 mg/dL (1.8-2.6)
[2016-12-13 05:08] LABS: CREATININE 3.6 mg/dL (0.6-1.3); PHOSPHORUS 2.7 mg/dL (2.5-4.9); POTASSIUM 3.8 mMol/L (3.7-5.1)
[2016-12-13 05:11] LABS: ALBUMIN 1.9 gm/dL (3.5-5.0); ANION GAP 12.8 (10.0-19.0)
[2016-12-14 03:35] LABS: HEMATOCRIT 29.6 % (37.0-53.0); HEMOGLOBIN 9.4 g/dL (11.0-16.0); MCHC 31.8 gm/dL (32.0-36.5); MCV 100.7 fl (83.0-98.0); MPV 11.1 fl (9.4-12.4); PLATELET COUNT 145 K/uL (150-450); RBC 2.94 M/uL (3.50-5.50); RDW-CV 15.1 % (11.9-14.6); WBC 9.9 K/uL (4.0-11.0)
[2016-12-14 03:58] LABS: CREATININE 3.7 mg/dL (0.6-1.3); POTASSIUM 4.4 mMol/L (3.7-5.1); TOTAL PROTEIN 7.1 g/dL (6.0-8.4)
[2016-12-14 04:12] LABS: ANION GAP 13.4 (10.0-19.0); TOTAL BILIRUBIN 0.6 mg/dL (0.0-1.5)
[2016-12-14 05:13] LABS: ABSOLUTE NEUTROPHIL CT (ANC) 8.9 K/uL (1.4-9.0); BANDED NEUTROPHIL # 1.8 K/uL (0.0-0.1); BANDED NEUTROPHILS % 18 %; LYMPHOCYTE # 0.7 K/uL (0.8-4.0); LYMPHOCYTE % 7 %; MONOCYTE # 0.1 K/uL (0.0-1.0); SEGMENTED NEUTROPHIL # 7.1 K/uL (1.4-9.0); SEGMENTED NEUTROPHIL % 72 %
[2016-12-15 05:43] LABS: CALCIUM 9.6 mg/dL (8.5-10.5); CREATININE 3.5 mg/dL (0.6-1.3); POTASSIUM 3.9 mMol/L (3.7-5.1)
[2016-12-15 05:46] LABS: ALBUMIN 1.9 gm/dL (3.5-5.0); ANION GAP 12.9 (10.0-19.0); PHOSPHORUS 1.9 mg/dL (2.5-4.9)
[2016-12-16 05:19] LABS: HEMATOCRIT 27.1 % (37.0-53.0); HEMOGLOBIN 8.9 g/dL (11.0-16.0)
[2016-12-16 05:35] LABS: ANION GAP 12.9 (10.0-19.0); CALCIUM 9.5 mg/dL (8.5-10.5); CREATININE 3.5 mg/dL (0.6-1.3); PHOSPHORUS 2.4 mg/dL (2.5-4.9); POTASSIUM 3.9 mMol/L (3.7-5.1)
[2016-12-17 11:09] LABS: ANION GAP 13.1 (10.0-19.0); CALCIUM 10.3 mg/dL (8.5-10.5); CREATININE 3.6 mg/dL (0.6-1.3); POTASSIUM 4.1 mMol/L (3.7-5.1)
[2016-12-17] MEDS ORDERED: ASPIRIN (CHILDR81 MG PO (12:10)
[2016-12-17] MEDS ORDERED: LIPITOR40 MG PO (12:11)
[2016-12-17] MEDS ORDERED: LEVEMIR FL100 UNIT/1 SUB-Q (12:13)
[2016-12-17] MEDS ORDERED: LOPRESSOR25 MG PO (12:16)
[2016-12-17] MEDS ORDERED: FLAGYL500 MG PO (12:17)
[2016-12-17] MEDS ORDERED: PROTONIX40 MG PO (12:18)
[2016-12-17] MEDS ORDERED: FLORASTOR250 MG PO (12:19)
[2016-12-17] MEDS ORDERED: SODIUM BICARBO650 MG PO (12:19)
[2016-12-17] MEDS ORDERED: BRILINTA90 MG PO (12:20)
[2017-02-03] MEDS ORDERED: PLAVIX75 MG PO (17:09)
[2017-02-03] MEDS ORDERED: FEOSOL325 MG PO (17:11)
[2017-02-03] MEDS ORDERED: FLORASTOR250 MG PO (17:14)
[2017-02-03] MEDS ORDERED: REVLIMID2.5 MG PO (17:16)
[2017-02-03] MEDS ORDERED: NINLARO2.3 MG PO (17:19)
[2017-02-22] MEDS ORDERED: LEVAQUIN500 MG PO (12:51)
== END 2016-12-17 13:30 | disposition disaster alternative care site (69) | DRG 853 ==
LOC: GMED 00:05 → GPCU 03:15
PROVIDERS: Emergency Medicine; Hospitalist; Internal Medicine Interventional Cardiology; Nurse Practitioner Acute Care; Physician Assistant; ADMIT Internal Medicine
PROC: 4A023N7 Measurement of Cardiac Sampling and Pressure, Left Heart, Percutaneous Approach (ICD-10-PCS; principal; 2016-12-13)
PROC: B2111ZZ Fluoroscopy of Multiple Coronary Arteries using Low Osmolar Contrast (ICD-10-PCS; principal; 2016-12-13)
PROC: 02703DZ Dilation of Coronary Artery, One Artery with Intraluminal Device, Percutaneous Approach (ICD-10-PCS; principal; 2016-12-13)
DX: A41.9 Sepsis, unspecified organism (principal); J96.01 Acute respiratory failure with hypoxia; N17.9 Acute kidney failure, unspecified; E87.0 Hyperosmolality and hypernatremia; C90.00 Multiple myeloma not having achieved remission; E87.2 Acidosis; I49.5 Sick sinus syndrome; D69.6 Thrombocytopenia, unspecified; N18.4 Chronic kidney disease, stage 4 (severe); K57.80 Diverticulitis of intestine, part unspecified, with perforation and abscess without bleeding; I25.110 Atherosclerotic heart disease of native coronary artery with unstable angina pectoris; E11.22 Type 2 diabetes mellitus with diabetic chronic kidney disease; R65.20 Severe sepsis without septic shock; I48.0 Paroxysmal atrial fibrillation; I12.9 Hypertensive chronic kidney disease with stage 1 through stage 4 chronic kidney disease, or unspecified chronic kidney disease; R19.7 Diarrhea, unspecified; E83.39 Other disorders of phosphorus metabolism; B96.6 Bacteroides fragilis [B. fragilis] as the cause of diseases classified elsewhere; K57.10 Diverticulosis of small intestine without perforation or abscess without bleeding; Z79.84 Long term (current) use of oral hypoglycemic drugs; E83.52 Hypercalcemia; E86.0 Dehydration; I48.2 Chronic atrial fibrillation; I25.5 Ischemic cardiomyopathy; Z79.52 Long term (current) use of systemic steroids; Z92.21 Personal history of antineoplastic chemotherapy; E11.65 Type 2 diabetes mellitus with hyperglycemia; Z68.35 Body mass index [BMI] 35.0-35.9, adult; E66.01 Morbid (severe) obesity due to excess calories; D63.1 Anemia in chronic kidney disease
CPT/HCPCS: A9270; A9500; A9539; A9540; C1725; C1760; C1769; C1876; C1887; C9113; C9600; J0461; J0692; J1170; J1650; J2270; J2405; J2543; J2785; J3370; J3480; J7030; J7040; J7050; J7060

== ENCOUNTER → 2016-12-29 | Outpatient (CLI) | payer MEDICARE ==
[~2016-12-29] MED LIST changes: +ASPIRIN (CHILDR81 MG PO; +BRILINTA90 MG PO; +FLAGYL500 MG PO; +LEVAQUIN500 MG PO; +LEVEMIR FL100 UNIT/1 SUB-Q; +LIPITOR40 MG PO; +LOPRESSOR25 MG PO; +NINLARO2.3 MG PO; +PLAVIX75 MG PO; +REVLIMID2.5 MG PO; +SODIUM BICARBO650 MG PO; +TRADJENTA5 MG PO; +TYLENOL EXTRA500 MG PO
[2016-12-29 11:32] LABS: HEMATOCRIT 25.2 % (37.0-53.0); HEMOGLOBIN 8.1 g/dL (11.0-16.0); MCH 31.9 pg (27.0-34.0); MCHC 32.1 gm/dL (32.0-36.5); MCV 99.2 fl (83.0-98.0); PLATELET COUNT 182 K/uL (150-450); RBC 2.54 M/uL (3.50-5.50); RDW-CV 15.4 % (11.9-14.6)
[2016-12-29 11:43] LABS: ALBUMIN 2.1 gm/dL (3.5-5.0); CALCIUM 10.6 mg/dL (8.5-10.5); PHOSPHORUS 2.6 mg/dL (2.5-4.9)
[2016-12-29 12:10] LABS: ABSOLUTE NEUTROPHIL CT (ANC) 4.4 K/uL (1.4-9.0); BANDED NEUTROPHIL # 1.5 K/uL (0.0-0.1); BANDED NEUTROPHILS % 22 %; LYMPHOCYTE # 1.7 K/uL (0.8-4.0); LYMPHOCYTE % 24 %; MONOCYTE # 0.8 K/uL (0.0-1.0); SEGMENTED NEUTROPHIL # 2.9 K/uL (1.4-9.0); SEGMENTED NEUTROPHIL % 41 %
== END | disposition disaster alternative care site (69) ==
LOC: LGSOS 11:04
PROVIDERS: Internal Medicine Interventional Cardiology
DX: I25.10 Atherosclerotic heart disease of native coronary artery without angina pectoris (principal)

== ENCOUNTER → 2017-02-04 | Outpatient (CLI) | payer MEDICARE | END | disposition disaster alternative care site (69) | LOC: GPOC 02-03 15:00 | DX: D64.9 Anemia, unspecified (principal) | CPT/HCPCS: J2001; J7040; P9058 ==

== ENCOUNTER → 2017-02-16 | Outpatient (CLI) | payer MEDICARE | END | disposition disaster alternative care site (69) | LOC: GOPD 02-15 16:00 | PROC: B513ZZA Fluoroscopy of Right Jugular Veins, Guidance (ICD-10-PCS; principal; 2017-02-16) | PROC: 05PY33Z Removal of Infusion Device from Upper Vein, Percutaneous Approach (ICD-10-PCS; 2017-02-16) | PROC: 05HM33Z Insertion of Infusion Device into Right Internal Jugular Vein, Percutaneous Approach (ICD-10-PCS; 2017-02-16) | DX: T82.49XA Other complication of vascular dialysis catheter, initial encounter (principal) | CPT/HCPCS: C1750; C1769; J1642; J1644 ==